=== PATIENT | female | born 1980 | race Caucasian/White ===

== ENCOUNTER 2019-08-12 13:41 | Inpatient (IN) | payer BC ==
[2019-08-12] MEDS ORDERED: Buffered Lidocaine 1% SYRIN* 1 ML/SYRINGE INTRADERM ONE (14:44)
[2019-08-12] MEDS ORDERED: Lactated Ringers 1000 ML Bag* 1,000 ML IV ONE (14:44)
[2019-08-12] MEDS ORDERED: Lactated Ringers 1000 ML Bag* 1,000 ML IV SCH (15:00)
[2019-08-12 15:17] LABS: ABS Basophils 0.1 10^3/ul (0-0.2); ABS Lymphocytes 2.1 10^3/ul (1.0-4.8); ABS Monocytes 0.7 10^3/ul (0-0.8); Eosinophil % 0.2 %; Hematocrit 35 % (35-47); Hemoglobin 11.8 g/dL (12.0-16.0); Mean Corpuscular HGB Conc 33 g/dL (31-36); Mean Corpuscular Hemoglobin 31 pg (27-31); Mean Corpuscular Volume 92 fL (80-97); Mean Platelet Volume 8.4 fL (7.4-10.4); Nucleated Red Blood Cells % 0.1; Platelet Count 271 10^3/uL (150-450); Red Blood Count 3.86 10^6 /uL (3.70-4.87); Red Cell Distribution Width 14 % (10-15); White Blood Count 9.8 10^3/uL (3.5-10.8)
--- NOTE | 2019-08-12 19:02 | HP ---
General Information - Reason for Visit Induction of labor - General Information Maternal Age: 38 Para: 2 SAB: 0 IEA: 0 Estimated Due Date: 07/31/19 Determined By: Early Ultrasound Maternal Blood Type and Rh: A Positive - Results this Serology/RPR Result: Non-Reactive Rubella Result: Immune HBsAg Result: Negative HIV Result: Negative GBS Culture Result: Negative Past Medical History Delivery History: Hx C/Section, Hx Uncomplicated Vaginal Delivery Pertinent Past Medical History: See Records - heart murmur with normal cardiac work up Pertinent Past Surgical History: See Records Pertinent Family History: See Records - Antepartal Records Antepartal Records: Reviewed, Complicated by: - prior CS, planned home delivery Review of Systems Constitutional: Comfortable CV Complaint: No Respiratory: Shortness of Breath: No Gastrointestinal: No Nausea/Vomiting, Normal Bowel Movement Genitourinary: No Dysuria, No Bleeding, No Leaking Fluid Musculoskeletal: No Complaint Neurological: No Headache, No Visual Changes Movement: Normal Exam Allergies/Adverse Reactions: Allergies Wasps Allergy (Uncoded 08/12/19 14:12) Anaphylatic Shock Lab Values - Entire Visit: Laboratory Tests 08/12/19 08/12/19 15:00 15:00 WBC 9.8 RBC 3.86 Hgb 11.8 L Hct 35 MCV 92 MCH 31 MCHC 33 RDW 14 Plt Count 271 MPV 8.4 Neut % (Auto) 71.5 Lymph % (Auto) 21.0 [place] % (Auto) 6.7 Eos % (Auto) 0.2 Baso % (Auto) 0.6 Absolute Neuts (auto) 7.0 Absolute Lymphs (auto) 2.1 Absolute Monos (auto) 0.7 Absolute Eos (auto) 0.0 Absolute Basos (auto) 0.1 Absolute Nucleated RBC 0.0 Nucleated RBC % 0.1 Blood Type A Positive Antibody Screen Negative - Measurements Height: 5 ft 10 in Weight: 230 lb Weight in lbs: [phone] Body Mass Index (BMI): 33.0 Pre- Weight: 170 lb Weight Gained This : 60 lbs and 0 ozs - Exam Breast: Breast Exam Deferred CVA: No CVA Tenderness Extremities: No Edema Heart: Normal Rhythm/Heart Sounds HEENT: No Significant Findings - Abdominal Exam Abdomen Exam: Non-Tender - Ultrasound/Biophysical Profile Ultrasound Status: Not Done Targeted Exam Findings Cervical Exam: 2cm, 3cm Effacement: 70% Station: -3 Presenting Part: Vertex Membrane Status: AROM EFM Findings - External Monitor Findings Baseline Heart Rate: 135 External Monitor Findings: Accelerations Present, No Pattern of Variable or Late Decelerations, Variability Moderate, Baseline Stable Contractions: None Assessment/Plan - Assessment @41.5wks with prior CS here with cervical extension followed by successful at [place]. She was originally planning a home delivery but has not gone into spontaneous labor yet. She is now interested in induction via ROM or cooks catheter. She had a growth sono with BPP 5 days ago and EFW was 10lb 6oz with BPP 8/8. She is aware of the risks involved with TOLAC including uterine rupture with potential maternal or morbidity and mortality. - Obstetrical Risk Factors Obstetrical Risk Factors: Previous C/Section in Labor - Plan Plan: Induction - via AROM, Admit - Anticipate Vaginal Delivery
[2019-08-12 22:20] LABS: Urine Benzodiazepine Screen None Detected (None Detect); Urine Opiates Screen None Detected (None Detect)
[2019-08-13] MEDS ORDERED: Glycerin ADULT SUPP PR PRN (04:01)
[2019-08-13] MEDS ORDERED: Lactated Ringers 1000 ML Bag* 1,000 ML IV SCH (05:00)
[2019-08-13] MEDS ORDERED: Lidocaine 1% INJ* 10 MG/ML 30 ML SDV ONE (05:25)
[2019-08-13] MEDS: Dibucaine 1% 28.35 GM TUBE PR PRN (05:27)
[2019-08-13] MEDS: Witch Hazel PAD* JAR TOPICAL PRN (05:27)
[2019-08-13] MEDS: Ibuprofen TAB* 600 MG PO PRN ×3 (05:28→18:44)
[2019-08-13] MEDS ORDERED: Oxytocin in LR* 20 UNITS/1,000 ML BAG IVPB ONE (06:11)
[2019-08-13] MEDS: Docusate CAP* 100 MG PO SCH ×3 (08:13→19:38)
[2019-08-13] MEDS: Acetaminophen TAB* 325 MG PO PRN ×2 (08:14→14:34)
[2019-08-13] MEDS ORDERED: Simethicone TAB* 80 MG TAB.CHEW PO SCH (08:30)
[2019-08-14] MEDS: Ibuprofen TAB* 600 MG PO PRN ×2 (00:42→07:08)
[2019-08-14 08:06] LABS: ABS Eosinophils 0.1 10^3/ul (0-0.6); ABS Lymphocytes 2.5 10^3/ul (1.0-4.8); ABS Monocytes 0.7 10^3/ul (0-0.8); Eosinophil % 0.8 %; Hematocrit 26 % (35-47); Hemoglobin 9.1 g/dL (12.0-16.0); Lymphocyte % 24.2 %; Mean Corpuscular HGB Conc 35 g/dL (31-36); Mean Corpuscular Hemoglobin 32 pg (27-31); Mean Corpuscular Volume 91 fL (80-97); Mean Platelet Volume 7.9 fL (7.4-10.4); Platelet Count 233 10^3/uL (150-450); Red Cell Distribution Width 14 % (10-15); White Blood Count 10.4 10^3/uL (3.5-10.8)
[2019-08-14 08:29] VITALS: BP 136/78
[2019-08-14] MEDS ORDERED: Ferrous Gluconate TAB* 324 MG TAB PO SCH (09:00)
[2019-08-14] MEDS: Dibucaine 1% 28.35 GM TUBE PR PRN (09:30)
[2019-08-14] MEDS: Docusate CAP* 100 MG PO SCH (09:30)
[2019-08-14] MEDS: Witch Hazel PAD* JAR TOPICAL PRN (09:30)
== END 2019-08-14 11:38 | disposition home or self-care (01) | DRG 560 ==
LOC: MCHOBOUT 13:41 → MCHOB 14:01
PROVIDERS: ADMIT Obstetrics & Gynecology; ATTEND Obstetrics & Gynecology
PROC: 10E0XZZ Delivery of Products of Conception, External Approach (ICD-10-PCS; principal; 2019-08-13)
PROC: 3E033VJ Introduction of Other Hormone into Peripheral Vein, Percutaneous Approach (ICD-10-PCS; 2019-08-13)
PROC: 10907ZC Drainage of Amniotic Fluid, Therapeutic from Products of Conception, Via Natural or Artificial Opening (ICD-10-PCS; 2019-08-13)
PROC: 0KQM0ZZ Repair Perineum Muscle, Open Approach (ICD-10-PCS; 2019-08-13)
DX: O48.0 Post-term pregnancy (principal); Z37.0 Single live birth; O34.211 Maternal care for low transverse scar from previous cesarean delivery; O77.0 Labor and delivery complicated by meconium in amniotic fluid; O70.1 Second degree perineal laceration during delivery; O90.81 Anemia of the puerperium; D64.9 Anemia, unspecified; Z3A.41 41 weeks gestation of pregnancy
CPT/HCPCS: 36415; 80307; 85025; 86850; 86900; 86901; A9270-GY; G0480